=== PATIENT | female | born 1960 | race Caucasian/White ===

== ENCOUNTER 2017-08-05 11:52 | Outpatient (CLI) | payer BC | END 2017-08-05 11:53 | disposition home or self-care (01) | LOC: BICMAMMO 11:52 | PROVIDERS: ATTEND Obstetrics & Gynecology | DX: Z12.31 Encounter for screening mammogram for malignant neoplasm of breast (principal) | CPT/HCPCS: 77063; 77067 ==

== ENCOUNTER 2018-04-01 09:31 | Outpatient (CLI) | payer BC ==
--- NOTE | 2018-04-01 12:17 | BD ---
DEXA BONE DENSITY SCAN: 04/01/2018 HISTORY: Postmenopausal female, undergoing screening for osteoporosis. COMPARISON: None. LUMBAR SPINE BMD (g/cm2) T-SCORE Z-SCORE L1 0.800 -1.7 -0.6 L2 0.831 -1.8 -0.6 L3 0.741 -3.1 -1.8 L4 0.672 -3.5 -2.2 TOTAL 0.761 -2.6 -1.3 FEMORAL NECK: 0.662 -1.7 -0.5 TOTAL PROXIMAL FEMUR: 0.810 -1.1 -0.3 FRAX-WHO Fracture Risk Assessment Tool reports a 10-year fracture risk, in an untreated patient, at 1 3% for a major osteoporotic fracture and 1.2% for a hip fracture. IMPRESSION: 1. Osteoporosis within the lumbar spine, correlating with a high associated risk for fracture. 2. Osteopenia noted within the femoral neck/proximal femur. POS: CEDRICK
== END 2018-04-01 09:32 | disposition home or self-care (01) ==
LOC: BICMAMMO 09:31
PROVIDERS: ATTEND Specialist
DX: M81.0 Age-related osteoporosis without current pathological fracture (principal); M85.859 Other specified disorders of bone density and structure, unspecified thigh
CPT/HCPCS: 77080

== ENCOUNTER 2019-12-05 14:32 | Outpatient (CLI) | payer BC ==
--- NOTE | 2019-12-05 15:04 | MMO ---
Bilateral MAMMO Bilat Screen [facility]. CLINICAL HISTORY: Patient is 59 years old and is seen for screening. The patient has the following family history of breast cancer: mother; maternal aunt and cousin female. The patient has no personal history of cancer. VIEWS: The views performed were: bilateral craniocaudal with tomosynthesis and bilateral mediolateral oblique with tomosynthesis. FILMS COMPARED: The present examination has been compared to prior imaging studies performed at [facility] on 08/05/2017, and at [facility] on 12/31/2006, 10/28/2011 and 05/16/2014. This study has been interpreted with the assistance of computer-aided detection. MAMMOGRAM FINDINGS: There are scattered fibroglandular densities. There are no suspicious masses, suspicious calcifications, or new areas of architectural distortion. IMPRESSION: THERE IS NO MAMMOGRAPHIC EVIDENCE OF MALIGNANCY. A ROUTINE FOLLOW-UP MAMMOGRAM IN 1 YEAR IS RECOMMENDED. THE RESULTS OF THIS EXAM WERE SENT TO THE PATIENT. ACR BI-RADS Category 1 - Negative MAMMOGRAPHY NOTE: 1. A negative mammogram report should not delay a biopsy if a dominant of clinically suspicious mass is present. 2. Approximately 10% to 15% of breast cancers are not detected by mammography. 3. Adenosis and dense breasts may obscure an underlying neoplasm. Reported by: KAYLEN GALLEGOS MD Electonically Signed: [id number]
== END 2019-12-05 14:33 | disposition home or self-care (01) ==
LOC: BICMAMMO 14:32
PROVIDERS: ATTEND Specialist
DX: Z12.31 Encounter for screening mammogram for malignant neoplasm of breast (principal); Z80.3 Family history of malignant neoplasm of breast
CPT/HCPCS: 77063; 77067